=== PATIENT | male | born 1935 | race Caucasian/White ===

== ENCOUNTER 2024-04-25 16:18 | Outpatient (CLI) | payer OTHER, SELFPAY ==
--- NOTE | ~2024-04-25 | XR_ITS ---
EXAMINATION: XR abdomen/kub 1V DATE: 04/25/2024 16:42 INDICATION: Kidney stone. TECHNIQUE: A supine view of the abdomen on 2 radiographs was obtained. COMPARISON: None. FINDINGS: There are no dilated loops of bowel. 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 There a re least four stones in right kidney measuring up to 17 mm. There are least two stones in left kidney measuring up to 14 mm. There is a 3 x 6 mm calcification in the area of proximal right ureter. IMPRESSION: 1. 3 x 6 mm calcification in the area of proximal right ureter that may be a stone. 2. Bilateral kidney stones. Reviewed, dictated and finalized at location A. IMPRESSION: 1. 3 x 6 mm calcification in the area of proximal right ureter that may be a st one. 2. Bilateral kidney stones.
== END 2024-04-25 16:19 | disposition home or self-care (01) ==
PROVIDERS: Visit Provider Urology
DX: N20.2 Calculus of kidney with calculus of ureter (principal)
CPT/HCPCS: 74018